=== PATIENT | female | born 1990 | race Caucasian/White ===

== ENCOUNTER → 2017-07-11 | Outpatient (REF) | payer MEDICAID | LOC: M LAB REF 12:55 | DX: J11.1 Influenza due to unidentified influenza virus with other respiratory manifestations (principal) ==

== ENCOUNTER → 2024-08-09 | Outpatient (REF) | payer MEDICAID, OTHER ==
[2024-08-09 18:13] LABS: HEMATOCRIT 42.5 % (36.0-47.0); HEMOGLOBIN 14.4 g/dl (12.0-15.5); MEAN CORPUSCULAR HEMOGLOBIN 30.4 pg (27.0-33.0); MEAN CORPUSCULAR HGB CONC 33.9 g/dl (32.0-36.5); MEAN CORPUSCULAR VOLUME 89.9 fl (80.0-96.0); PLATELET COUNT, AUTOMATED 229 10^3/uL (150-450); RED BLOOD COUNT 4.73 10^6/uL (4.00-5.40); WHITE BLOOD COUNT 7.9 10^3/uL (4.0-10.0)
[2024-08-09 18:40] LABS: HEMOGLOBIN A1c 4.9 % (4.0-6.0)
[2024-08-09 18:42] LABS: ALBUMIN 4.1 G/DL (3.2-5.2); ALKALINE PHOSPHATASE 156 U/L (35-104); ALT/SGPT 409 U/L (7.0-40); AST/SGOT 266 U/L (<34); BILIRUBIN,TOTAL 1.9 MG/DL (0.3-1.2); BLOOD UREA NITROGEN 12 MG/DL (9-23); CALCIUM LEVEL 9.1 MG/DL (8.5-10.1); CARBON DIOXIDE LEVEL 22 MMOL/L (20-31); CHLORIDE LEVEL 104 MMOL/L (98-107); CHOLESTEROL LEVEL 181 MG/DL (<200); CHOLESTEROL RISK RATIO 3.26 (<5); GLOMERULAR FILTRATION RATE > 60.0 (>60); GLUCOSE, FASTING 78 MG/DL (60-100); HDL CHOLESTEROL 55.5 MG/DL (>40); LDL CHOLESTEROL 86.5 MG/DL (<100); NON-HDL-C 125.5 MG/DL; POTASSIUM SERUM 3.8 MMOL/L (3.5-5.1); SODIUM LEVEL 136 MMOL/L (136-145); TOTAL PROTEIN 7.3 G/DL (5.7-8.2); TRIGLYCERIDES LEVEL 195 MG/DL (<150)
[2024-08-09 18:44] LABS: THYROID STIMULATING HORMONE 2.579 uIU/ML (0.55-4.78)
[2024-08-09 18:45] LABS: TOTAL 25(OH) VITAMIN D 6.8 NG/ML (20.0-100.0)
== END ==
LOC: M LAB REF 17:43
PROVIDERS: ATTEND Student in an Organized Health Care Education/Training Program
DX: Z00.01 Encounter for general adult medical examination with abnormal findings (principal)

== ENCOUNTER 2025-01-02 11:12 | Emergency (ER) | payer OTHER ==
[~2025-01-02] VITALS: Ht 147.3 cm; Wt 86.3 kg
[2025-01-02 12:12] LABS: KETONE, URINE AUTO RFX 1+ mg/dL (NEGATIVE); MUCUS, URINE RFX SMALL (NEGATIVE); NITRITE, URINE AUTO RFX NEGATIVE (NEGATIVE); RBC, URINE AUTO RFX 3 /HPF (0-3); SQUAM EPITHELIAL CELL UR AURFX 10 /HPF (0-6); WBC, URINE AUTO RFX 9 /HPF (0-3)
[2025-01-02 12:15] LABS: LEUKOCYTE ESTERASE UR AUTO RFX TRACE (NEGATIVE)
[2025-01-02 13:15] LABS: BASO # 0.1 10^3/uL (0.0-0.2); BASO % 0.9 % (0.0-1.0); EOS # 0.1 10^3/uL (0.0-0.5); EOS % 0.6 % (0.0-3.0); LYMPH # 1.6 10^3/uL (1.5-5.0); LYMPH % 16.5 % (24.0-44.0); MONO # 0.7 10^3/uL (0.0-0.8); MONO % 7.7 % (2.0-8.0); NEUTROPHILS # 7.0 10^3/uL (1.5-8.5); NEUTROPHILS % 73.9 % (36.0-66.0); PLATELET COUNT, AUTOMATED 264 10^3/uL (150-450)
[2025-01-02 13:33] LABS: HCG, SERUM QUALITATIVE NEGATIVE (NEGATIVE)
[2025-01-02 13:36] LABS: ALT/SGPT 455 U/L (7.0-40); AST/SGOT 363 U/L (<34)
[2025-01-02] MEDS ORDERED: ISOVUE-370 76% 100 ML VIAL As Ordered ONE (15:22)
[2025-01-02] MEDS: NS (Normal Saline) 0.9% 1,000 ML IV ONE (15:41)
[2025-01-02] MEDS: MORPHINE 4 MG/ML 1 ML VIAL IV ONE (15:42)
[2025-01-02] MEDS: KETOROLAC 30 MG/ML 1 ML VIAL IV ONE (17:29)
[2025-01-02 19:48] VITALS: BP 128/78; TEMP 98; O2SAT 97
== END 2025-01-02 19:57 | disposition short-term general hospital (02) ==
LOC: M ED 11:12
DX: K85.10 Biliary acute pancreatitis without necrosis or infection (principal); F17.200 Nicotine dependence, unspecified, uncomplicated; N88.8 Other specified noninflammatory disorders of cervix uteri
CPT/HCPCS: 74177; 80047; 80076; 81001; 83605; 83690; 84703; 85025; 87086; 93005; 96374; 96375; 99285; J1885; Q9967